=== PATIENT | female | born 1945 | race Caucasian/White ===

== ENCOUNTER → 2021-04-22 | Outpatient (CLI) | payer MEDICARE ==
--- NOTE | 2021-04-22 14:01 | Diagnostic Imaging Report ---
INDICATION: Hyperparathyroidism. Patient received intravenous dose of 22 mCi technetium 99M sestamibi. Planar imaging over the neck and upper chest was performed both 20 minutes and 2 hours after injection. There is normal physiologic uptake about the salivary glands. No convincing evidence for abnormal extra thyroidal uptake in the neck or chest. IMPRESSION: No suspicious or focal sonographic abnormality to localize the clinically suspected parathyroid adenoma in this patient. Dictated by: Dictated on workstation # [id number]
== END ==
LOC: CARD 04-16 12:30
PROVIDERS: ATTEND Otolaryngology
DX: E21.3 Hyperparathyroidism, unspecified (principal)
CPT/HCPCS: 78072; A9500

== ENCOUNTER → 2021-12-23 | Outpatient (CLI) | payer MEDICARE ==
[2021-12-23 16:26] LABS: HEMATOCRIT 42 % (35-52); HEMOGLOBIN 13.8 g/dL (11.5-16.0); MEAN CORPUSCULAR HEMOGLOBIN 32 pg (25-34); MEAN CORPUSCULAR HGB CONC 33 g/dL (32-36); MEAN CORPUSCULAR VOLUME 97 fL (80-99); MEAN PLATELET VOLUME 9.8 fL (9.0-12.2); PLATELET COUNT 289 10^3/uL (130-400); WHITE BLOOD COUNT 8.6 10^3/uL (4.3-11.0)
[2021-12-23 16:54] LABS: ALANINE AMINOTRANSFERASE 23 U/L (0-55); ALBUMIN 4.6 GM/DL (3.2-4.5); ALKALINE PHOSPHATASE 42 U/L (40-136); BILIRUBIN,TOTAL 0.4 MG/DL (0.1-1.0); BUN/CREATININE RATIO 23; CALCIUM 11.4 MG/DL (8.5-10.1); CARBON DIOXIDE 23 MMOL/L (21-32); CHLORIDE 103 MMOL/L (98-107); CREATININE SERUM 1.25 MG/DL (0.60-1.30); GFR ESTIMATED 44; GLUCOSE 161 MG/DL (70-105); POTASSIUM 4.7 MMOL/L (3.6-5.0); SODIUM 140 MMOL/L (135-145); TOTAL PROTEIN 7.9 GM/DL (6.4-8.2)
--- NOTE | 2021-12-24 08:50 | Diagnostic Imaging Report ---
HISTORY: Radiculopathy. COMPARISON: None. TECHNIQUE: Two views of the chest. FINDINGS: Lung volumes are normal. No consolidation is seen. There is a calcified granuloma in the left lung base. There is no pleural effusion or pneumothorax. The cardiac silhouette is normal in size. There are degenerative changes throughout the thoracic spine with flowing anterior osteophytes. Vertebral body heights are preserved. No acute fracture is seen. Cervical spine fusion hardware is noted. IMPRESSION: 1. No acute pulmonary abnormality is seen. 2. Degenerative changes in the thoracic spine with findings suggestive of diffuse idiopathic skeletal hyperostosis. Dictated by: Dictated on workstation # [id number]
== END ==
LOC: RT 16:00
DX: Z01.812 Encounter for preprocedural laboratory examination (principal); Z01.810 Encounter for preprocedural cardiovascular examination; M48.00 Spinal stenosis, site unspecified; M47.24 Other spondylosis with radiculopathy, thoracic region
CPT/HCPCS: 36415; 71046; 80053; 85027; 93005